=== PATIENT | female | born 1950 | race Caucasian/White ===

== ENCOUNTER 2017-02-27 11:50 | Inpatient (IN) | payer MEDICARE, MEDICAID ==
[~2017-02-27] VITALS: Ht 167.6 cm; Wt 39.9 kg
[2017-02-27 14:01] LABS: BASOPHILS % 0.6 % (0.0-2.0); EOSINOPHILS % 0.4 % (0.0-5.0); LYMPHOCYTES % 19.4 % (20.0-50.0); MEAN CORPUSCULAR HEMOGLOBIN 30.2 pg (28.0-32.0); MEAN CORPUSCULAR VOLUME 90.6 fL (81.0-99.0); MEAN PLATELET VOLUME 9.7 fl (7.4-10.4); NEUTROPHILS % 68.6 % (40.0-76.0); PLATELET 274 x1000/uL (130-400); RED BLOOD CELL COUNT 4.97 mill/uL (4.2-5.4); RED CELL DISTRIBUTION WIDTH 14.7 % (11.6-14.6)
[2017-02-27 14:04] LABS: CHLORIDE 98 mEq/L (98-107)
[2017-02-27 14:11] LABS: CARBON DIOXIDE 27 mEq/L (21-32); VALPROIC ACID < 3.0 ug/mL (50-100)
[2017-02-27] MEDS ORDERED: VALPROATE SODIUM 500 MG in DEXT 5% WATER 100 ML IV ONE (16:30)
[2017-02-27 20:00] VITALS: BP_SYST 126; BP_SYST 160; BP_DIAS 78; BP_DIAS 82
[2017-02-27 20:30] VITALS: BP 160/78
[2017-02-27] MEDS ORDERED: ONDANSETRON HCL 4MG/2ML VIAL IV PRN (21:45)
[2017-02-27] MEDS ORDERED: LORAZEPAM 2MG/ML CPJ IV PRN (21:54)
[2017-02-27] MEDS ORDERED: HYDRALAZINE 20MG/ML VIAL IV PRN (22:00)
[2017-02-27] MEDS ORDERED: MULT9LIQ PO (22:43)
[2017-02-27] MEDS ORDERED: VALP250S5 PO (22:43)
[2017-02-27] MEDS ORDERED: VALP250S4 PO (22:43)
[2017-02-27] MEDS ORDERED: ASPI-986 PO (22:43)
[2017-02-27] MEDS ORDERED: LEVE100S PO (22:43)
[2017-02-27] MEDS ORDERED: CHOL100044 PO (22:43)
[2017-02-27] MEDS ORDERED: ATOR40TA70 PO (22:43)
[2017-02-27] MEDS ORDERED: METO-396 PO (22:43)
[2017-02-27] MEDS ORDERED: PHEN125O2 PO ×2 (22:43)
[2017-02-27] MEDS ORDERED: FE300LUD PO (22:43)
[2017-02-27] MEDS ORDERED: ACET-2178 PO (22:43)
[2017-02-27] MEDS: PHENYTOIN SODIUM 100MG/2ML VIAL IV SCH (22:59)
[2017-02-27] MEDS: LEVETIRACETAM 500 MG in SODIUM CHLORIDE 0.9% 100 ML IV SCH (23:00)
[2017-02-27] MEDS: DEXT 5%/0.45% NACL 1000ML 1,000 ML IV SCH (23:01)
[2017-02-28] VITALS: BP_SYST 126; BP_SYST 160; BP_DIAS 78; BP_DIAS 82
[2017-02-28 04:00] VITALS: BP 98/57
[2017-02-28] MEDS: PHENYTOIN SODIUM 100MG/2ML VIAL IV SCH ×3 (06:10→23:00)
[2017-02-28 06:38] LABS: CARBON DIOXIDE 22 mEq/L (21-32); CHLORIDE 101 mEq/L (98-107); CREATINE KINASE 150 IU/L (26-192)
[2017-02-28 06:40] LABS: HEMATOCRIT. 38.6 % (36.0-48.0); HEMOGLOBIN. 13.1 g/dL (12.0-16.0); MEAN CORPUSCULAR HEMOGLOBIN 30.6 pg (28.0-32.0); MEAN CORPUSCULAR VOLUME 90.2 fL (81.0-99.0); MEAN PLATELET VOLUME 8.3 fl (7.4-10.4); PLATELET 221 x1000/uL (130-400); RED BLOOD CELL COUNT 4.27 mill/uL (4.2-5.4); RED CELL DISTRIBUTION WIDTH 14.1 % (11.6-14.6)
[2017-02-28 08:00] VITALS: BP 103/53
[2017-02-28] MEDS: LEVETIRACETAM 500 MG in SODIUM CHLORIDE 0.9% 100 ML IV SCH ×2 (10:29→21:07)
[2017-02-28] MEDS: DEXT 5%/0.45% NACL 1000ML 1,000 ML IV SCH (11:20)
[2017-02-28 12:00] VITALS: BP 114/68
[2017-02-28 14:10] LABS: PLATELET ESTIMATE NORMAL
[2017-02-28 16:00] VITALS: BP 119/80
[2017-02-28 20:00] VITALS: BP 87/61
[2017-03-01] VITALS (7 sets, daily range): BP systolic 98–111; BP diastolic 38–59
[2017-03-01] MEDS: DEXT 5%/0.45% NACL 1000ML 1,000 ML IV SCH ×2 (04:30→14:00)
[2017-03-01] MEDS: PHENYTOIN SODIUM 100MG/2ML VIAL IV SCH ×2 (05:33→14:00)
[2017-03-01] MEDS: LEVETIRACETAM 500 MG in SODIUM CHLORIDE 0.9% 100 ML IV SCH (09:00)
[2017-03-01] MEDS ORDERED: ENOXAPARIN 30MG/0.3ML SYR SUBCUT SCH (10:00)
[2017-03-01 10:05] LABS: CARBON DIOXIDE 23 mEq/L (21-32); CHLORIDE 106 mEq/L (98-107)
[2017-03-02] MEDS ORDERED: ENOXAPARIN 40MG/0.4ML SYR SUBCUT SCH (09:00)
== END 2017-03-01 20:35 | DRG 53 ==
LOC: ER 12:13 → 7WST 16:22 → ENRESERV 18:27
PROVIDERS: ADMIT Hospitalist; ATTEND Hospitalist
DX: G40.909 Epilepsy, unspecified, not intractable, without status epilepticus (principal); E43 Unspecified severe protein-calorie malnutrition; G20 Parkinson's disease; F03.90 Unspecified dementia, unspecified severity, without behavioral disturbance, psychotic disturbance, mood disturbance, and anxiety; R53.2 Functional quadriplegia; E87.5 Hyperkalemia; F20.9 Schizophrenia, unspecified; F32.9 Major depressive disorder, single episode, unspecified; F41.9 Anxiety disorder, unspecified; I10 Essential (primary) hypertension; Z74.01 Bed confinement status
CPT/HCPCS: 36415; 51702; 70450; 80048; 80053; 80165; 80185; 82550; 83735; 85025; 92610; 96374; 99285; C1893; J1165; J1650; J1953; J2060; J3490; J7040; J7050; J7060; A4315